=== PATIENT | male | born 1980 | race African-American/Black ===

== ENCOUNTER 2022-06-12 18:27 | Emergency (ER) | payer SELFPAY | END 2022-06-12 22:46 | disposition left against medical advice (07) | LOC: CSHERS 18:27 | DX: Z53.21 Procedure and treatment not carried out due to patient leaving prior to being seen by health care provider (principal) ==

== ENCOUNTER 2022-06-17 13:34 | Emergency (ER) | payer SELFPAY ==
[2022-06-17] MEDS ORDERED: Lidocaine 1% (PF) 30 ML VIAL ONE (15:30)
== END 2022-06-17 16:30 | disposition home or self-care (01) ==
LOC: CSHERS 13:34
DX: L02.01 Cutaneous abscess of face (principal); F17.210 Nicotine dependence, cigarettes, uncomplicated
CPT/HCPCS: 10060; J2001

== ENCOUNTER 2022-07-21 07:06 | Emergency (ER) | payer OTHER, SELFPAY | END 2022-07-21 08:40 | disposition home or self-care (01) | LOC: CSHERS 07:06 | DX: S01.111A Laceration without foreign body of right eyelid and periocular area, initial encounter (principal); S90.32XA Contusion of left foot, initial encounter; S00.81XA Abrasion of other part of head, initial encounter; V19.9XXA Pedal cyclist (driver) (passenger) injured in unspecified traffic accident, initial encounter; Y93.55 Activity, bike riding | CPT/HCPCS: 12011 ==